=== PATIENT | male | born 1995 | race Caucasian/White ===

== ENCOUNTER 2018-05-23 11:57 | Emergency (ER) | payer OTHER ==
[~2018-05-23] VITALS: Ht 188 cm; Wt 60.3 kg
[~2018-05-23 11:57] MED LIST: BENZONATATE200 MG PO; IBUPROFEN600 M1 PO; ORPHENADRINE C100 MG PO; ZITHROMAX Z-PA250 M1 PO
--- NOTE | 2018-05-23 12:09 | ED GENERAL ADULT ---
History of Present Illness General Chief Complaint: Animal/Insect Bite Stated Complaint: DOG BITE Source: patient Exam Limitations: no limitations Vital Signs & Intake/Output Vital Signs & Intake/Output Vital Signs Date Time Temp Pulse Resp B/P B/P Pulse O2 O2 Flow FiO2 Mean Ox Delivery Rate 05/23 1309 97.3 79 18 120/72 98 Room Air 05/23 1202 98.1 110 18 137/88 98 Room Air Allergies Coded Allergies: venom-honey bee (ANAPHYLAXIS 07/23/16) Reconcile Medications Ibuprofen 600 MG TABLET 1 TAB PO Q6P PRN PAIN with food Orphenadrine Citrate 100 MG TABLET.ER 1 TAB PO BID PRN MUSCLE PAIN/SPASMS Triage Note: 23 YEAR OLD MALE STATES THAT ABOUT 20 MINUTES AGO HIS COUSINS DOG BIT HIM IN THE FACE, PT NOTED WITH LAC TO R CHEEK AND THROUGH L UPPER AND MID LIP Triage Nurses Notes Reviewed? yes HPI: This is an otherwise healthy 23-year-old male who was bitten the face by a friend's pit bull. He suffered lacerations to his upper lip, right cheek. patient states that this animal is vaccinated. It is a rescue and he believes that he may have got too close to her face. He arrives with lacerations to the face, denies any difficulty breathing or speaking. He had no loss of consciousness. Denies any headache or neck pain. No other trauma noted on history or physical exam. No active bleeding. Patient denies any dental trauma. (Phi Silva MD) Past History Travel History Traveled to [place] past 21 day No Medical History Any Pertinent Medical History? 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 No (Phi Silva MD) Review of Systems Review of Systems Constitutional: Reports: no symptoms. EENTM: Reports: see HPI. Respiratory: Reports: no symptoms. Cardiovascular: Reports: no symptoms. GI: Reports: no symptoms. Genitourinary: Reports: no symptoms. Musculoskeletal: Reports: no symptoms. Skin: Reports: see HPI. Neurological/Psychological: Reports: no symptoms. (Phi Silva MD) Physical Exam Physical Exam General Appearance: well developed/nourished, no apparent distress, alert, anxious Head: evidence of injury Eyes: Bilateral: normal appearance, PERRL, EOMI. Ears, Nose, Throat: normal pharynx Neck: normal inspection, supple, full range of motion Respiratory: normal breath sounds, no respiratory distress, lungs clear Cardiovascular: regular rate/rhythm, normal peripheral pulses Gastrointestinal: normal bowel sounds, non-tender Rectal: deferred Back: normal inspection, normal range of motion Extremities: normal inspection, normal capillary refill, normal range of motion, no edema Neurologic/Psych: awake, alert, oriented x 3 Skin: intact Comments: 2 cm linear, jagged, horizontal laceration to right upper cheek, appears to be full-thickness. 1 cm laceration lateral to right lower lip, horizontal, jagged. 2 lacerations noted to the left upper lip, both of which violate the vermilion border. Both of which appear full-thickness. No obvious dental trauma noted. Airway secured. Some macerated tissue noted to right cheek as well. Core Measures ACS in differential dx? No CVA/TIA Diagnosis: No Sepsis Present: No Sepsis Focused Exam Completed? No (Phi Silva MD) Progress Differential Diagnoses I considered the following diagnoses in my evaluation of the patient: Multiple lacerations, lower suspicion for acute dental trauma, airway compromise. Doubt rabies exposure given animal is vaccinated. Will prophylax against infection with Augmentin. Plan for pain control with Motrin, nausea prophylaxis with Zofran. Patient also administered Tdap given he is unsure of his last vaccination date. Plan of Care: Current Medications Sig/Javier Start time Last Medication Dose Stop Time Status Admin Amoxicillin/ 875 MG ONCE ONE 05/23 1300 AC Clavulanate Potassium 05/23 130 (Augmentin) Ibuprofen 600 MG ONCE ONE 05/23 1300 UNVr (Motrin) 05/23 130 Ondansetron HCl 4 MG ONCE ONE 05/23 1300 UNVr (Zofran) 05/23 1301 Tetanus/Reduced 0.5 ML ONCE ONE 05/23 1300 AC Diphtheria/Acell 05/23 1301 Pertussis (Adacel) Risks and benefits of closure are discussed with patient. He opts for transfer to the [facility] for plastic surgery evaluation and closure. Case discussed with on-call max face attending Dr. Marin. She agrees with need for transfer and assessment. Patient will go to the emergency department for evaluation. Initial ED EKG: normal intervals (Phi Silva MD) Departure Departure Time of Disposition: 1302 Disposition: OTHER [facility] (ACUTE) Condition: Stable Clinical Impression Primary Impression: Dog bite of face Referrals: Tee GARCÍA,Praneeth Humphrey (PCP/Family) Departure Forms: Customer Survey General Discharge Information (Phi Silva MD) Resident Co-Sign Statement Statement: ED Attending supervision documentation- [] I saw and evaluated the patient. I have also reviewed all the pertinent lab results and diagnostic results. I agree with the findings and the plan of care as documented in the Resident's documentation. [X] I have reviewed the ED Record and agree with the Resident's documentation. [] Additions or exceptions (if any) to the Resident's note and plan are summarized below: [] (Irma GARCÍA,Robert Ga) Critical Care Note Critical Care Note Critical Care Time: non-applicable (Phi Silva MD)
[2018-05-23 13:09] VITALS: BP 120/72
== END 2018-05-23 13:19 | disposition short-term general hospital (02) ==
LOC: ERH 11:57
DX: S01.85XA Open bite of other part of head, initial encounter (principal); W54.0XXA Bitten by dog, initial encounter; Y92.9 Unspecified place or not applicable; Y93.9 Activity, unspecified
CPT/HCPCS: 90714; J3101; J3490